=== PATIENT | male | born 1960 | race Caucasian/White ===

== ENCOUNTER → 2018-11-18 | Outpatient (CLI) | payer OTHER ==
[~2018-11-18] MED LIST: ALEVE220 MG PO; ATORVASTATIN CA40 MG PO; CENTRUM SILVER1 EAC4 PO; FLEXERIL PO; MEDROLDOSEPACK PO; MOBIC15 MG PO; NORVASC 5 MG TAB5 MG PO; PRINZIDE 20-121 EACH PO; PROBIOTIC1 EAC1 PO; TURMERIC500 M2 PO; VITAMIN D2000 UNIT PO; ZESTORETIC 20-1 EACH PO; relafen PO
--- NOTE | ~2018-11-18 | PAINCON ---
[address] [address] PAIN MANAGEMENT CONSULTATION Name: ESTHER,DAVIS MORENO Room: [facility] Jacki#: [id number] Admission: 11/18/18 Attend Phys: Morgan Sheldon MD Discharge: Date of : 64 Report #: [id number] THIS REPORT FOR: //name// CC: Medhat Sheldon DATE OF SERVICE: 11/18/2018 CHIEF COMPLAINT: Pain that goes down in the buttocks and into my right leg." HISTORY OF PRESENT ILLNESS: The patient is a 58-year-old gentleman who has been referred to the pain clinic for evaluation. The patient states that he is having pain and discomfort, which he rates as a 5-7/10. It is worse with activity. Has used ibuprofen and ____ to help decrease pain. It involves his right lower buttocks and radiates down the lateral portion of his leg. Notes that the pain becomes more problematic, particularly after riding his car and working. Notes that there is stiffness associated with it. He has used ibuprofen as well as Excedrin. He has not had surgery. ALLERGIES: No known drug allergies. MEDICATIONS: Norvasc 5 mg, Lipitor 20 mg at bedtime, vitamin D3 2000 units, lactobacillus probiotic daily, Zestoretic 20/12.5, multivitamin, Centrum, turmeric root extract 900 mg daily. PAST MEDICAL HISTORY: Hypertension, joint disease/arthritis. PAST SURGICAL HISTORY: Varicocele repair for fertility. 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 REVIEW OF SYSTEMS: Generally good health, fatigue and weakness, wears glasses, swollen glands in neck, joint pain, joint stiffness, weakness of muscles, muscle pain and cramps, back pain, difficulty walking. LABORATORY DATA: No laboratory values were available at the time of our interview. PAIN CLINIC ASSESSMENT AND PQRS: 1. The patient is not being treated for rheumatoid arthritis. 2. The patient is not being treated for osteoarthritis at this juncture. 3. Height 6 feet 2 inches, weight 242 pounds, BMI is 36.2. 4. Vital signs: Blood pressure 130/66, heart rate 60, respiratory rate 16, room air saturation 96%, temperature 98.2. 5. Pain intensity 5/10. 6. Fall history: The patient has not fallen in the last [address] [place] [address] PAIN MANAGEMENT CONSULTATION Name: DAVIS SANTANA Room: [facility]#: [id number] Admission: 11/18/18 Attend Phys: Morgan Sheldon MD Discharge: Date of : 64 Report #: [id number] 7. Blood thinner. The patient is not on a blood thinning medication. 8. Hypertension. The patient is being treated for hypertension. 9. Opioid medications. The patient is not receiving opioid medications on a regular basis. 10. Risk assessment tool, low for opioid use. 11. Functional assessment tool, . 12. Recreational drug use. The patient denies use of recreational drugs. 13. Tobacco: The patient denies use of tobacco. 14. Alcohol: The patient denies use of alcohol on a regular basis. PHYSICAL EXAMINATION: GENERAL: The patient is a well-developed, well-nourished white male. Appears his stated age of 58 years. He is alert and oriented x 3. His affect is appropriate. Speech is fluent. HEENT: Normocephalic, atraumatic. Extraocular eye muscles intact. Sclerae nonicteric. Mucous membranes are moist. NECK: Without adenopathy or JVD. EXTREMITIES: Upper extremity muscle strength judged to be 5/5 for the major muscle groups in the upper extremity. Deep tendon reflexes are +1 at the biceps. HEART: Regular rate. LUNGS: Clear to auscultation. ABDOMEN: Nontender. Bowel sounds present. MUSCULOSKELETAL: The patient without significant scoliosis, kyphosis or lordosis. Does have pain and discomfort in the lower portion of his back with pain that is radiating around the right lateral area in the L4-L5 dermatomal distribution. It stops at the knee. Notes some increased pain and discomfort with forward bending. Lumbar rotation and extension caused some increased pain in the right low back area with pain radiating down to the area of the knee. Lower extremity muscle strength generally 5/5 on the left and 5-/5 on the right. IMPRESSION: 1. Lumbar radiculopathy, L4-L5 dermatomal distribution on the right. 2. Hypertension. 3. Joint disease/arthritis RECOMMENDATIONS: We discussed treatment options with the patient. At this juncture, we will try a conservative approach. The patient will try a Medrol Dosepak to note its efficacy. He will take the medication as prescribed. He will then return to the pain clinic at which time we will consider the possibility of an epidural steroid injection. The patient will also try a nonsteroidal anti-inflammatory medication on a regular basis. He has been given a script for meloxicam. He will take this medication. If he notes some problems or GI discomfort, he will stop taking the medication. He will follow up in the near future for additional treatment if necessary. [address] [place] [address] PAIN MANAGEMENT CONSULTATION Name: DAVIS SANTANA Room: [facility]#: [id number] Admission: 11/18/18 Attend Phys: Morgan Sheldon MD Discharge: Date of : 64 Report #: [id number] We would like to thank you for letting us participate in his care. We hope he continues to improve. By: [id number]. Darin Sheldon MD /PMT
== END ==
LOC: M.PC 12:54
DX: M54.16 Radiculopathy, lumbar region (principal); I10 Essential (primary) hypertension; M19.90 Unspecified osteoarthritis, unspecified site; Z79.899 Other long term (current) drug therapy

== ENCOUNTER → 2020-10-11 | Outpatient (CLI) | payer OTHER | END | disposition home or self-care (01) | LOC: M.PC 12:09 | PROVIDERS: ATTEND Anesthesiology Pain Medicine | DX: M54.16 Radiculopathy, lumbar region (principal); G89.29 Other chronic pain; I10 Essential (primary) hypertension; M19.90 Unspecified osteoarthritis, unspecified site; Z98.890 Other specified postprocedural states; Z79.899 Other long term (current) drug therapy ==

== ENCOUNTER → 2021-04-06 | Outpatient (CLI) | payer OTHER | END | disposition home or self-care (01) | LOC: M.PC 10:44 | PROVIDERS: ATTEND Anesthesiology Pain Medicine | DX: M54.16 Radiculopathy, lumbar region (principal); G89.29 Other chronic pain; Z98.890 Other specified postprocedural states; Z79.899 Other long term (current) drug therapy ==